=== PATIENT | female | born 1965 | race Caucasian/White ===

== ENCOUNTER 2021-01-03 16:26 | Outpatient (REF) | payer OTHER, SELFPAY ==
[2021-01-03 16:45] LABS: Glucose Urine UA NEG (NEG); Leukocyte Esterase Urine NEG (NEG); Nitrite Urine NEG (NEG); PH 6.5 (5.0-8.0); Specific Gravity - Urine 1.015 (1.005-1.025); Urine Blood 1+ (NEG); Urine Ketones NEG (NEG); Urine Protein NEG (NEG-TRACE)
[2021-01-03 16:47] LABS: Appearance Urine CLEAR; Color Urine YELLOW
[2021-01-03 17:00] LABS: Microalbum/Creatinine Ratio Ur 29.2 ug/mg cr
[2021-01-03 17:33] LABS: Squamous Epithelial Cell Urine 1+ /LPF; WBC Urine 0 /HPF (0-4)
== END 2021-01-03 16:27 | disposition home or self-care (01) ==
LOC: HO.LNP 16:26
PROVIDERS: Visit Provider Internal Medicine
DX: E11.9 Type 2 diabetes mellitus without complications (principal); E78.5 Hyperlipidemia, unspecified; I10 Essential (primary) hypertension; E66.9 Obesity, unspecified
CPT/HCPCS: 81001; 82043

== ENCOUNTER 2021-01-03 16:26 | Outpatient (REF) | payer OTHER, SELFPAY | END 2021-01-03 16:27 | disposition home or self-care (01) | LOC: HO.LNP 16:26 | PROVIDERS: Visit Provider Internal Medicine | DX: Z13.89 Encounter for screening for other disorder (principal) ==

== ENCOUNTER 2021-07-06 08:32 | Outpatient (REF) | payer OTHER, SELFPAY ==
[2021-07-06 11:45] LABS: Alanine Aminotransferase 52 U/L (0-31); Alkaline Phosphatase 98 U/L (39-117); Anion Gap 10 (12-20); Aspartate Amino Transferase 21 U/L (5-31); Bilirubin Total 0.3 mg/dL (0.0-1.0); Blood Urea Nitrogen 15 mg/dL (9-16); Calcium 9.7 mg/dL (8.4-10.2); Carbon Dioxide 31 mmol/L (22-29); Chloride 105 mmol/L (96-108); Cholesterol 221 mg/dL; Estimated Glomerular Filt Rate > 60; Glucose Fasting 131 mg/dL (60-99); HDL Cholesterol 38 mg/dL; LDL Cholesterol Calculated 126 mg/dl; Potassium 4.5 mmol/L (3.3-5.1); Sodium 141 mmol/L (135-145); Total Protein 6.6 g/dL (6.5-8.0); Triglycerides 285 mg/dL
[2021-07-06 11:55] LABS: SARS COV2 IgG Negative (Negative)
[2021-07-06 12:05] LABS: Estimated Average Glucose 143 mg/dL; Hemoglobin A1c % 6.6 %
== END 2021-07-06 08:33 | disposition home or self-care (01) ==
LOC: HO.HMGCLDS 08:32
PROVIDERS: PCP Internal Medicine; Visit Provider Internal Medicine
DX: Z00.00 Encounter for general adult medical examination without abnormal findings (principal); Z20.822 Contact with and (suspected) exposure to COVID-19; E11.9 Type 2 diabetes mellitus without complications; E66.9 Obesity, unspecified; E78.5 Hyperlipidemia, unspecified; I10 Essential (primary) hypertension
CPT/HCPCS: 36415; 80053; 80061; 83036; 86769

== ENCOUNTER 2023-02-17 10:45 | Outpatient (REF) | payer OTHER, SELFPAY ==
[2023-02-17 11:45] LABS: MANUAL DIFF FLAG NO
[2023-02-17 11:54] LABS: Basophils Absolute Auto 0.1 X10*3/uL (0.0-0.2); Basophils Percent Auto 0.7 % (0-2); Eosinophils Absolute Auto 0.3 X10*3/uL (0.0-0.4); Eosinophils Percent Auto 2.3 % (0-4); Hematocrit 45.6 % (37.0-47.0); Hemoglobin 14.2 g/dl (12.0-16.0); Imm Gran Abs Auto 0.05 X10*3/uL (0.00-0.03); Imm Gran Pct Auto 0.4 % (0.0-0.4); Lymphocytes Absolute Auto 3.4 X10*3/uL (1.2-4.9); Lymphocytes Percent Auto 28.4 % (20-40); Mean Corpuscular HGB Conc 31.1 g/dl (31.0-35.0); Mean Corpuscular Hemoglobin 25.2 pg (27.0-33.0); Mean Platelet Volume 9.6 fL (9.4-12.3); Monocytes Absolute Auto 0.7 X10*3/uL (0.1-1.2); Monocytes Percent Auto 5.8 % (2-11); Neutrophils Absolute Auto 7.5 x10*3/uL (2.0-8.3); Neutrophils Percent Auto 62.4 % (45-73); Platelet Count 364 X10*3/uL (160-400); Red Blood Count 5.63 X10*6/uL (4.20-5.50); Red Cell Distribution Width 16.9 % (11.0-16.0)
[2023-02-17 12:02] LABS: Estimated Average Glucose 157 mg/dL; Hemoglobin A1c % 7.1 %
[2023-02-17 12:33] LABS: Alanine Aminotransferase 78 U/L (0-31); Albumin Level 4.1 g/dL (3.5-5.0); Alkaline Phosphatase 95 U/L (39-117); Anion Gap 13 (12-20); Aspartate Amino Transferase 37 U/L (5-31); Bilirubin Total 0.4 mg/dL (0.0-1.0); Blood Urea Nitrogen 17 mg/dL (9-16); Calcium 9.3 mg/dL (8.4-10.2); Carbon Dioxide 28 mmol/L (22-29); Chloride 108 mmol/L (96-108); Cholesterol 202 mg/dL; Estimated Glomerular Filt Rate > 60; Glucose Fasting 127 mg/dL (60-99); HDL Cholesterol 37 mg/dL; LDL Cholesterol Calculated 133 mg/dl; Potassium 4.2 mmol/L (3.3-5.1); Sodium 145 mmol/L (135-145); Total Protein 6.8 g/dL (6.5-8.0); Triglycerides 163 mg/dL
[2023-02-17 12:48] LABS: TSH reflex Free T4 0.87 uIU/mL (0.32-4.0)
== END 2023-02-17 10:46 | disposition home or self-care (01) ==
LOC: HO.HMGCLDS 10:45
PROVIDERS: PCP Internal Medicine; Visit Provider Internal Medicine
DX: E11.9 Type 2 diabetes mellitus without complications (principal); E78.5 Hyperlipidemia, unspecified; I10 Essential (primary) hypertension
CPT/HCPCS: 36415; 80053; 80061; 83036; 84443; 85025

== ENCOUNTER 2023-06-15 09:33 | Outpatient (AMB) | payer OTHER, SELFPAY ==
--- NOTE | 2023-06-15 09:35 | A.OFFPC_ITS ---
Intake Visit Reasons: medication Follow Up ( [phone]) Intake Note: Telehealth visit . Allergies adhesive tape Allergy (Unknown, Verified 06/15/23 09:36) turns skin purple amoxicillin [Amoxicillin] Allergy (Unknown, Verified 06/15/23 09:36) VOMITING BLOOD, unknown ibuprofen [From Motrin] Allergy (Unknown, Verified 06/15/23 09:36) vomiting blood, gi bleed NSAIDS (Non-Steroidal Anti-Inflamma [NSAIDS (NON-STEROIDAL ANTI-INFLAMMA] Allergy (Unknown, Verified 06/15/23 09:36) UPSET STOMACH atorvastatin [From Lipitor] Adverse Reaction (Intermediate, Verified 06/15/23 11:03) MYALGIA rosuvastatin [From Crestor] Adverse Reaction (Intermediate, Verified 06/15/23 11:02) MYALGIA Medication List - Last Reconciled 06/15/23 by Chelsy Patel MD blood sugar diagnostic (FreeStyle Lite Strips) use 1 test strip to test blood sugar three times a day carvedilol 6.25 mg PO BID cetirizine 10 mg PO DAILY PRN cyclobenzaprine 10 mg PO BEDTIME PRN ezetimibe 10 mg PO DAILY fluticasone propionate 110 mcg/actuation (Flovent HFA) 2 puffs inhalation BID fluticasone propionate 50 mcg/actuation 3 sprays intranasal BEDTIME furosemide 20 mg PO Q OTHER DAY glipizide 5 mg PO QAM lancets (FreeStyle Lancets) use 1 lancet 3 times a day to test blood sugar losartan 100 mg PO DAILY 90 days naproxen 500 mg PO BID omeprazole 40 mg PO DAILY sitagliptin phos-metformin 100-1,000 mg ER 1 tab PO DAILY tramadol 100 mg PO QID PRN Ventolin HFA 90 mcg/actuation (albuterol sulfate) 2 puffs inhalation Q8H PRN NS Tobacco use date assessed: 06/15/23 Dental Screening Dental Screen Date: 06/15/23 Did you have a dental visit in the last 12 months?: Yes Did you have a dental problem in the last 6 months where you did not have access to dental care?: No Was dental information given to patient?: Patient has dentist HPI medication Follow Up ) HPI Details This is a tele health visit. Patient's for follow-up of type 2 diabetes hypertension and hyperlipidemia. She reports fasting blood glucose between 140-160 but has not had blood work since February. Patient follows up with director payer annually for hypertension. Asthma is controlled on current medications, [facility] Medical History (Updated 06/15/23 @ 11:06 by Chelsy Patel MD) Asthma Diabetes mellitus Dyslipidemia Essential hypertension Morbid obesity KWESI (obstructive sleep apnea) Osteoarthritis of knees, bilateral Surgical History Deviated septum History of arthroscopy of shoulder History of colonoscopy History of endoscopy History of rotator cuff surgery History of sinus surgery History of tubal ligation Family History Father Diabetes mellitus HTN (hypertension) Mother HTN (hypertension) COPD (chronic obstructive pulmonary disease) Rheumatoid arthritis Brother Spondylitis Paternal Aunt Breast cancer Brother No problems noted. Sister No problems noted. Son No problems noted. Daughter No problems noted. Social History Housing: Apartment Patient Tobacco Use Status: Former Tobacco user Quit Date: 09/07/2016 e-Cigarette/Vaping Use: Former Use Current occupational status: unemployed Cognitive needs: No Hearing needs: No Vision needs: Yes Questionnaire Thrive Questionnaire Date Thrive assessed: 11/15/22 ANA-7 AMB Questionnaire ANA-7 Date ANA - 7 assessed: 11/15/22 Source: Developed by Drs. Poli Mitchell, Jenna Astorga, Jun Dong and colleagues, with an educational delmer from [email or web address]. Review of Systems Const All systems reviewed & are unremarkable except as noted in HPI and below Reports no additional complaints Eyes Reports no additional complaints ENT Reports no additional complaints Card Reports no additional complaints Resp Reports no additional complaints GI Reports no additional complaints Reports no additional complaints Physical exam (Primary Care) Tobacco/Smoking Status: Tobacco use Status Tobacco use date assessed 06/15/23 06/15/23 09:37 Patient Tobacco Use Status Former Tobacco user 06/15/23 09:37 e-Cigarette/Vaping Use Former Use 06/15/23 09:37 Thrive Assessment: Date of Thrive Assessment Date Thrive assessed 11/15/22 06/15/23 09:37 Telehealth Telehealth Location of provider rendering services: practice address Location of patient: address on file Patient Identification confirmed using: Name, : Yes Telehealth method: voice only Patient verbally consented to treatment: Yes Patient verbally consented to billing insurance company: Yes Patient informed of any privacy concerns related to visit: Yes Minutes spent on Phone/Video with Pt.: 30 Assessment and Plan Assessment & Plan (1) Diabetes mellitus: Code(s): E11.9 - Type 2 diabetes mellitus without complications Plan: ADA diet increase exercise discussed with the patient she will return for fasting blood work including A1c. Adding SGLT2 inhibitor for diabetes and heart failure benefit discussed with the patient but she prefers to obtain blood work before. Patient was advised to have a physical scheduled in 4 months with a fas ting labs before (2) Essential hypertension: Code(s): I10 - Essential (primary) hypertension Plan: Continue current medications follow-up with Cardiology at [facility] (3) Morbid obesity: Code(s): E66.01 - Morbid (severe) obesity due to excess calories Plan: Weight loss discussed with the patient (4) Hyperlipidemia: Code(s): E78.5 - Hyperlipidemia, unspecified Plan: Continue Zetia (5) Osteoarthritis of knees, bilateral: Comment: f/u rheumatology Code(s): M17.0 - Bilateral primary osteoarthritis of knee (6) Asthma: Code(s): J45.909 - Unspecified asthma, uncomplicated Plan: Continue Flovent and albuterol as needed. Patient will schedule physical in 4 months with a fasting labs before (7) Heart failure with preserved ejection fraction: Comment: f/u [facility] cardiology annually, last Echo 08/23 EF 55-65%, MILD LV DIASTOLIC DYSFUNCTION, last OV 08/26 Code(s): I50.30 - Unspecified diastolic (congestive) heart failure (8) KWESI (obstructive sleep apnea): Comment: on iVAPs Code(s): G47.33 - Obstructive sleep apnea (adult) (pediatric) Orders: Orders Comprehensive [place]. Panel Fast Today E11.9 - Type 2 diabetes mellitus without complications, E66.01 - Morbid (severe) obesity due to excess calories, E78.5 - Hyperlipidemia, unspecified, I10 - Essential (primary) hypertension Hemoglobin A1c Today E11.9 - Type 2 diabetes mellitus without complications, E66.01 - Morbid (severe) obesity due to excess calories, E78.5 - Hyperlipidemia, unspecified, I10 - Essential (primary) hypertension Lipid Panel Today E11.9 - Type 2 diabetes mellitus without complications, E66.01 - Morbid (severe) obesity due to excess calories, E78.5 - Hyperlipidemia, unspecified, I10 - Essential (primary) hypertension Microalbumin, Random (w Creat) Today E11.9 - Type 2 diabetes mellitus without complications, E66.01 - Morbid (severe) obesity due to excess calories, E78.5 - Hyperlipidemia, unspecified, I10 - Essential (primary) hypertension TSH reflex Free T4 Today E11.9 - Type 2 diabetes mellitus without complications, E66.01 - Morbid (severe) obesity due to excess calories, E78.5 - Hyperlipidemia, unspecified, I10 - Essential (primary) hypertension Hemoglobin A1c 4 Months E11.9 - Type 2 diabetes mellitus without complications, I10 - Essential (primary) hypertension, Z00.00 - Encounter for general adult medical examination without abnormal findings Comprehensive [place]. Panel Fast 4 Months E11.9 - Type 2 diabetes mellitus without complications, I10 - Essential (primary) hypertension, Z00.00 - Encounter for general adult medical examination without abnormal findings Lipid Panel 4 Months E11.9 - Type 2 diabetes mellitus without complications, I10 - Essential (primary) hypertension, Z00.00 - Encounter for general adult medical examination without abnormal findings Medications: New fluconazole (Diflucan) 150 mg PO Q3D 2 tabs 0RF Refilled sitagliptin phos-metformin 100-1,000 mg ER 1 tab PO DAILY 90 tabs 3RF glipizide 5 mg PO QAM 90 caps 3RF E11.9 - Type 2 diabetes mellitus without complications Coding Level of Care Code Tele Est Pt Level 4 (13507) Diagnoses Diabetes mellitus E11.9 Essential hypertension I10 Morbid obesity E66.01 Hyperlipidemia E78.5 Osteoarthritis of knees, bilateral M17.0 Asthma J45.909 Heart failure with preserved ejection fraction I50.30 KWESI (obstructive sleep apnea) G47.33
== END 2023-06-15 10:12 | disposition home or self-care (01) ==
LOC: HO.HMGC 09:33
PROVIDERS: PCP Internal Medicine; Visit Provider Internal Medicine
DX: E11.9 Type 2 diabetes mellitus without complications (principal); I10 Essential (primary) hypertension; E66.01 Morbid (severe) obesity due to excess calories; J45.909 Unspecified asthma, uncomplicated; I50.30 Unspecified diastolic (congestive) heart failure; E78.5 Hyperlipidemia, unspecified; M17.0 Bilateral primary osteoarthritis of knee; G47.33 Obstructive sleep apnea (adult) (pediatric)
CPT/HCPCS: 99214

== ENCOUNTER 2023-10-19 11:49 | Outpatient (AMB) | payer OTHER, SELFPAY ==
--- NOTE | 2023-10-19 12:01 | MHC.PC.OV ---
Vital Signs 10/19/23 12:25 Height 5 ft 4 in BP 125/78 Blood Pressure Location Lt brachial Position Sitting Pulse 87 Pulse Source Pulse Oximeter Pulse Oximetry (%) 97 Oxygen Delivery Method Room Air Intake Visit Reasons: Annual PE+NEEDS COMPLETE PHQ9 +THRIVE Intake Note: pt is here today for annual PE Allergies adhesive tape Allergy (Unknown, Verified 10/19/23 12:24) turns skin purple amoxicillin [Amoxicillin] Allergy (Unknown, Verified 10/19/23 12:24) VOMITING BLOOD, unknown ibuprofen [From Motrin] Allergy (Unknown, Verified 10/19/23 12:24) vomiting blood, gi bleed NSAIDS (Non-Steroidal Anti-Inflamma [NSAIDS (NON-STEROIDAL ANTI-INFLAMMA] Allergy (Unknown, Verified 10/19/23 12:24) UPSET STOMACH atorvastatin [From Lipitor] Adverse Reaction (Intermediate, Verified 10/19/23 12:24) MYALGIA rosuvastatin [From Crestor] Adverse Reaction (Intermediate, Verified 10/19/23 12:24) MYALGIA Medication List - Last Reconciled 10/19/23 by Chelsy Patel MD blood sugar diagnostic (FreeStyle Lite Strips) use 1 test strip to test blood sugar three times a day carvedilol 6.25 mg PO BID cetirizine 10 mg PO DAILY PRN cyclobenzaprine 10 mg PO BEDTIME PRN ezetimibe 10 mg PO DAILY fluconazole (Diflucan) 150 mg PO Q3D 2 doses fluticasone propionate 110 mcg/actuation (Flovent HFA) 2 puffs inhalation BID fluticasone propionate 50 mcg/actuation 3 sprays intranasal BEDTIME furosemide 20 mg PO Q OTHER DAY glipizide 5 mg PO QAM lancets (FreeStyle Lancets) use 1 lancet 3 times a day to test blood sugar losartan 100 mg PO DAILY 90 days naproxen 500 mg PO BID omeprazole 40 mg PO DAILY sitagliptin phos-metformin 100-1,000 mg ER 1 tab PO DAILY Ventolin HFA 90 mcg/actuation (albuterol sulfate) 2 puffs inhalation Q8H PRN NS Tobacco use date assessed: 10/19/23 Dental Screening Dental Screen Date: 10/19/23 Did you have a dental visit in the last 12 months?: Yes Did you have a dental problem in the last 6 months where you did not have access to dental care?: No Was dental information given to patient?: Patient has dentist HPI Annual PE+NEEDS COMPLETE PHQ9 +THRIVE HPI Details PATIENT PRESENTS FOR PHYSICAL. [facility] Medical History Morbid obesity Osteoarthritis of knees, bilateral Asthma KWESI (obstructive sleep apnea) Essential hypertension Dyslipidemia Diabetes mellitus Surgical History History of endoscopy History of colonoscopy Deviated septum History of sinus surgery History of arthroscopy of shoulder History of rotator cuff surgery History of tubal ligation Family History Father Diabetes mellitus HTN (hypertension) Mother HTN (hypertension) COPD (chronic obstructive pulmonary disease) Rheumatoid arthritis Brother Spondylitis Paternal Aunt Breast cancer Brother No problems noted. Sister No problems noted. Son No problems noted. Daughter No problems noted. Social History Housing: Apartment Patient Tobacco Use Status: Former Tobacco user Quit Date: 09/07/2016 e-Cigarette/Vaping Use: Former Use Current occupational status: unemployed Cognitive needs: No Hearing needs: No Vision needs: Yes Questionnaire PHQ-9 Over the last 2 weeks, how often have you been bothered by any of the following problems? 1. Little interest or pleasure in doing things: more than half the days 2. Feeling down, depressed, or hopeless: more than half the days 3. Trouble falling or staying asleep, or sleeping too much: nearly every day 4. Feeling tired or having little energy: more than half the days 5. Poor appetite or overeating: not at all 6. Feeling bad about yourself - or that you are a failure or have let yourself or your family down: nearly every day 7. Trouble concentrating on things, such as reading the newspaper or watching television: more than half the days 8. Moving or speaking so slowly that other people could have noticed. Or the opposite - being so fidgety or restless that you have been moving around a lot more than usual: several days 9. Thoughts that you would be better off or of hurting yourself in some way: not at all Total score: 15 Depression Screening Interpretation: Positive Depression Screening Done: Yes [id number] - PHQ-9 Billing: Yes Source: Developed by Drs. Poli Mitchell, Jenna Astorga, Jun Dong and colleagues, with an educational delmer from [employer]. Thrive Questionnaire Date Thrive assessed: 10/19/23 What is your living situation today?: I have a steady place to live Within the past 12 months, did the food you bought not last and you didn't have the money to get more?: Often true Within the past 12 months, did you worry whether your food would run out before you got money to buy more?: Often true Do you have trouble paying for medicines?: No Do you have trouble getting transportation to medical appointments?: Yes Do you have trouble paying your heating and electricity bill?: Yes Do you have trouble taking care of your child, family member or friend?: Yes Do you have trouble with day-to-day activities such as bathing, preparing meals, shopping, managing finances, etc.?: Yes Are you currently unemployed and looking for a job?: No Are you interested in more education?: No Please select the resources that you would like help with: Paying for medicine, Transportation, Utilities, Childcare and Daily support AUDIT C Alcohol Use Questionnaire (AUDIT-C) 2. How many drinks containing alcohol do you have on a typical day when you are drinking?: 1 or 2 Total Score: 0 ANA-7 AMB Questionnaire ANA-7 Date ANA - 7 assessed: 10/19/23 Feeling nervous, anxious, or on edge: 0 = Not at all Not being able to stop or control worryin = Not at all Worrying too much about different things: 0 = Not at all Trouble relaxin = Not at all Being so restless that it is hard to sit still: 0 = Not at all Becoming easily annoyed or irritable: 0 = Not at all Feeling afraid as if something awful might happen: 0 = Not at all Total ANA-7 score (0-4 normal; 5-9 mild; 10-14 moderate; 15-21 severe): 0 Source: Developed by Jenna Rubin Kurt Kroenke and colleagues, with an educational delmer from [employer]. Review of Systems Const All systems reviewed & are unremarkable except as noted in HPI and below Reports no additional complaints Eyes Reports no additional complaints ENT Reports no additional complaints Card Reports no additional complaints Resp Reports no additional complaints GI Reports no additional complaints Reports no additional complaints Physical exam (Primary Care) Vital Signs: Last Vital Signs Pulse 87 10/19/23 12:25 BP 150/90 H 10/19/23 12:25 Pulse Ox 97 10/19/23 12:25 Oxygen Delivery Method Room Air 10/19/23 12:25 Tobacco/Smoking Status: Tobacco use Status Tobacco use date assessed 10/19/23 10/19/23 12:29 Patient Tobacco Use Status Former Tobacco user 10/19/23 12:01 e-Cigarette/Vaping Use Former Use 10/19/23 12:01 PHQ-9: PHQ-9 Score PHQ-9: Total score 15 10/19/23 12:59 Depression Screening Interpretation: Positive Thrive Assessment: Date of Thrive Assessment Date Thrive assessed 10/19/23 10/19/23 12:59 Const General: no acute distress HENMT Head: Yes normal to inspection Face and sinus: Yes normal facial exam Throat: Yes posterior oropharynx normal Eyes General: appearance normal, both eyes and all related structures Neck Neck: Yes supple Resp Effort & Inspection: normal respiratory effort Auscultation: clear to auscultation bilaterally Cardio Rhythm: regular rhythm Heart sounds: S1 normal heart sound present and S2 normal heart sound present GI Inspection: Yes normal to inspection Palpation (GI): Soft to palpation Percussion: Yes normal to percussion Auscultation: normal bowel sounds Extrem Other: DIABETIC FOOT EXAM SKIN IS INTACT MONOFILAMENT AND VIBRATION SENSATION INTACT General: Yes no clubbing, cyanosis or edema Assessment and Plan Assessment & Plan (1) Hyperlipidemia: Code(s): E78.5 - Hyperlipidemia, unspecified Plan: Continue statin (2) Annual physical exam: Code(s): Z00.00 - Encounter for general adult medical examination without abnormal findings Plan: Well-balanced diet regular exercise weight loss discussed with the patient. She will schedule an appointment for mammogram at [facility] and [facility] (3) Morbid obesity: Code(s): E66.01 - Morbid (severe) obesity due to excess calories Plan: Weight loss discussed with the patient, she declined taking GLP 1 receptor agonist (4) Diabetes mellitus: Code(s): E11.9 - Type 2 diabetes mellitus without complications Plan: Patient will return for fasting blood work next week . ADA diet increase exercise weight loss discussed with the patient. (5) Dyslipidemia: Comment: Intolerant to Crestor and Lipitor, on Zetia for hyperlipidemia Code(s): E78.5 - Hyperlipidemia, unspecified Plan: Continue Zetia , check lipid profile (6) Heart failure with preserved ejection fraction: Comment: f/u [facility] cardiology annually, last Echo 08/23 EF 55-65%, MILD LV DIASTOLIC DYSFUNCTION, last OV 08/26 Code(s): I50.30 - Unspecified diastolic (congestive) heart failure Plan: Continue current medications follow-up with Cardiology annually Orders: Orders Comprehensive [place]. Panel Fast Today E11.9 - Type 2 diabetes mellitus without complications, E66.01 - Morbid (severe) obesity due to excess calories, E78.5 - Hyperlipidemia, unspecified, Z00.00 - Encounter for general adult medical examination without abnormal findings MM screening mammo BI Today E11.9 - Type 2 diabetes mellitus without complications, E66.01 - Morbid (severe) obesity due to excess calories, E78.5 - Hyperlipidemia, unspecified, Z00.00 - Encounter for general adult medical examination without abnormal findings, Z12.31 - Encounter for screening mammogram for malignant neoplasm of breast Complete Blood Count Auto Diff Today E11.9 - Type 2 diabetes mellitus without complications, E66.01 - Morbid (severe) obesity due to excess calories, E78.5 - Hyperlipidemia, unspecified, Z00.00 - Encounter for general adult medical examination without abnormal findings Lipid Panel Today E11.9 - Type 2 diabetes mellitus without complications, E66.01 - Morbid (severe) obesity due to excess calories, E78.5 - Hyperlipidemia, unspecified, Z00.00 - Encounter for general adult medical examination without abnormal findings Hemoglobin A1c Today E11.9 - Type 2 diabetes mellitus without complications, E66.01 - Morbid (severe) obesity due to excess calories, E78.5 - Hyperlipidemia, unspecified, Z00.00 - Encounter for general adult medical examination without abnormal findings Microalbumin, Random (w Creat) Today E11.9 - Type 2 diabetes mellitus without complications, E66.01 - Morbid (severe) obesity due to excess calories, E78.5 - Hyperlipidemia, unspecified, Z00.00 - Encounter for general adult medical examination without abnormal findings TSH reflex Free T4 Today E11.9 - Type 2 diabetes mellitus without complications, E66.01 - Morbid (severe) obesity due to excess calories, E78.5 - Hyperlipidemia, unspecified, Z00.00 - Encounter for general adult medical examination without abnormal findings Coding Level of Care Code Est Pt Prev Care 40-64y(60223) Diagnoses Hyperlipidemia E78.5 Annual physical exam Z00.00 Morbid obesity E66.01 Diabetes mellitus E11.9 Dyslipidemia E78.5 Heart failure with preserved ejection fraction I50.30
[2023-10-19 12:25] VITALS: BP 125/78; PULSE 87; O2SAT 97
== END 2023-10-19 13:15 | disposition home or self-care (01) ==
PROVIDERS: PCP Internal Medicine; Visit Provider Internal Medicine
DX: Z00.00 Encounter for general adult medical examination without abnormal findings (principal); E11.69 Type 2 diabetes mellitus with other specified complication; E66.01 Morbid (severe) obesity due to excess calories; I50.30 Unspecified diastolic (congestive) heart failure; E78.5 Hyperlipidemia, unspecified
CPT/HCPCS: 99396

== ENCOUNTER 2024-08-22 13:56 | Outpatient (AMB) | payer OTHER, SELFPAY ==
--- NOTE | 2024-08-22 13:57 | A.OFFPC_ITS ---
Vital Signs 08/22/24 13:58 Height 5 ft 4 in BMI Reason not done Patient refused/unable BP 136/80 Blood Pressure Location Rt brachial Position Sitting Pulse 92 Pulse Source Pulse Oximeter Pulse Oximetry (%) 96 Intake Visit Reasons: DM followup Intake Note: pt is here for dm follow up Interactive Media Marketing Specialist Required: No Accompanied by: Self / Same As Patient Allergies adhesive tape Allergy (Unknown, Verified 08/22/24 13:58) turns skin purple amoxicillin [Amoxicillin] Allergy (Unknown, Verified 08/22/24 13:58) VOMITING BLOOD, unknown ibuprofen [From Motrin] Allergy (Unknown, Verified 08/22/24 13:58) vomiting blood, gi bleed NSAIDS (Non-Steroidal Anti-Inflamma [NSAIDS (NON-STEROIDAL ANTI-INFLAMMA] Allergy (Unknown, Verified 08/22/24 13:58) UPSET STOMACH atorvastatin [From Lipitor] Adverse Reaction (Intermediate, Verified 08/22/24 13:58) MYALGIA rosuvastatin [From Crestor] Adverse Reaction (Intermediate, Verified 08/22/24 13:58) MYALGIA Medication List - Last Reconciled 08/22/24 by Chelsy Patel MD blood sugar diagnostic (FreeStyle Lite Strips) use 1 test strip to test blood sugar three times a day carvedilol 6.25 mg PO BID cetirizine 10 mg PO DAILY PRN cyclobenzaprine 10 mg PO BEDTIME PRN ezetimibe 10 mg PO DAILY fluticasone propionate 50 mcg/actuation 3 sprays intranasal BEDTIME fluticasone propionate 110 mcg/actuation (Flovent HFA) 2 puffs inhalation BID furosemide 20 mg PO Q OTHER DAY glipizide 5 mg PO QAM lancets (FreeStyle Lancets) use 1 lancet 3 times a day to test blood sugar losartan 100 mg PO DAILY 90 days naproxen 500 mg PO BID omeprazole 40 mg PO DAILY sitagliptin phos-metformin 100-1,000 mg ER 1 tab PO DAILY Ventolin HFA 90 mcg/actuation (albuterol sulfate) 2 puffs inhalation Q8H PRN NS Tobacco use date assessed: 08/22/24 Dental Screening Dental Screen Date: 08/22/24 Did you have a dental visit in the last 12 months?: Yes Did you have a dental problem in the last 6 months where you did not have access to dental care?: No Was dental information given to patient?: Patient has dentist HPI DM followup HPI Details Patient presents for the follow-up of type 2 diabetes hyperlipidemia heart failure with preserved ejection fraction. Patient has not been seen for year and a half in my office. She states has difficulty with transportation. She follows up with a finger buffs assembler annually in her last visit was in May. Her A1c was 8.2. Patient complains of chronic bilateral knee pain stiffness and difficulty walking or exercising because of advanced osteoarthritis. [facility] Medical History Morbid obesity Osteoarthritis of knees, bilateral Asthma KWESI (obstructive sleep apnea) Essential hypertension Dyslipidemia Diabetes mellitus Surgical History History of endoscopy History of colonoscopy Deviated septum History of sinus surgery History of arthroscopy of shoulder History of rotator cuff surgery History of tubal ligation Family History Father Diabetes mellitus HTN (hypertension) Mother HTN (hypertension) COPD (chronic obstructive pulmonary disease) Rheumatoid arthritis Brother Spondylitis Paternal Aunt Breast cancer Brother No problems noted. Sister No problems noted. Son No problems noted. Daughter No problems noted. Social History Housing: Apartment Patient Tobacco Use Status: Former Tobacco user e-Cigarette/Vaping Use: Former Use Current occupational status: unemployed Cognitive needs: No Hearing needs: No Vision needs: Yes Questionnaire PHQ-9 Over the last 2 weeks, how often have you been bothered by any of the following problems? 41949 - PHQ-9 Billing: Patient declined-do not bill Source: Developed by Drs. Poli Mitchell, Jenna Astorga, Jun Dong and colleagues, with an educational delmer from [employer]. Thrive Questionnaire Date Thrive assessed: 10/19/23 AUDIT C Alcohol Use Questionnaire (AUDIT-C) 1. How often do you have a drink containing alcohol?: Monthly or less 2. How many drinks containing alcohol do you have on a typical day when you are drinking?: 1 or 2 3. How often do you have six or more drinks on one occasion?: Never Total Score: 1 Score Reviewed/Action Taken: Yes ANA-7 AMB Questionnaire ANA-7 Date ANA - 7 assessed: 08/22/24 Source: Developed by DrsVince Mitchell, Jenna Astorga, Jun Dong and colleagues, with an educational delmer from [employer]. ANA-7 Assessment Billing ANA-7 Assessment Tool: pt declined-do not bill Review of Systems Const All systems reviewed & are unremarkable except as noted in HPI and below Eyes Reports no additional complaints ENT Reports no additional complaints Card Reports no additional complaints Resp Reports no additional complaints GI Reports no additional complaints Reports no additional complaints Physical exam (Primary Care) Vital Signs: Last Vital Signs Pulse 92 08/22/24 13:58 BP 136/80 08/22/24 13:58 Pulse Ox 96 08/22/24 13:58 Tobacco/Smoking Status: Tobacco use Status Tobacco use date assessed 08/22/24 08/22/24 14:04 Patient Tobacco Use Status Former Tobacco user 08/22/24 14:04 e-Cigarette/Vaping Use Former Use 08/22/24 14:04 Thrive Assessment: Date of Thrive Assessment Date Thrive assessed 10/19/23 08/22/24 14:04 HENMT Head: Yes normal to inspection Throat: Yes posterior oropharynx normal Resp Effort & Inspection: normal respiratory effort Auscultation: clear to auscultation bilaterally Cardio Rhythm: regular rhythm Heart sounds: S1 normal heart sound present and S2 normal heart sound present GI Inspection: Yes normal to inspection Palpation (GI): Soft to palpation Percussion: Yes normal to percussion Auscultation: normal bowel sounds Extrem Other: Diabetic foot exam skin is intact monofilament sensation intact bilaterally General: Yes no clubbing, cyanosis or edema Results AMB Hemoglobin A1c AMB Hemoglobin A1c 7.6 % Last Edit by Herberth Leon CMA on 08/22/24 14: 33 Coding Level of Care Code Est Pt Level 5 (19783) Complex EM visit Add On G2211 Diagnoses Diabetes mellitus E11.9 Morbid obesity E66.01 Hyperlipidemia E78.5 Heart failure with preserved ejection fraction I50.30 Assessment & Plan Assessment & Plan (1) Diabetes mellitus: Code(s): E11.9 - Type 2 diabetes mellitus without complications Category: Medical Plan: A1c is 7.6 today, ADA diet increase physical activity weight loss discussed with the patient. Glipizide will be discontinued Farxiga 5 mg will be started. Patient will continue Janumet and Ozempic 0.25 mg weekly will be started. Side effects discussed with the patient. Patient is concerned about a side effect of stomach dysmotility related to Ozempic and ongoing lawsuit. (2) Morbid obesity: Code(s): E66.01 - Morbid (severe) obesity due to excess calories Category: Medical Plan: Decrease caloric intake increase physical activity weight loss discussed with the patient. (3) Hyperlipidemia: Comment: Intolerant to Crestor and Lipitor Code(s): E78.5 - Hyperlipidemia, unspecified Category: Medical Plan: Continue Zetia low-cholesterol diet discussed with the patient. (4) Heart failure with preserved ejection fraction: Comment: f/u [facility] cardiology annually, last Echo 08/23 EF 55-65%, MILD LV DIASTOLIC DYSFUNCTION, last OV 08/26 Code(s): I50.30 - Unspecified diastolic (congestive) heart failure Category: Medical Plan: Farxiga will be added carvedilol will be increased to 25 mg twice a day for better heart rate control. Continue furosemide and losartan follow-up in 1 month Orders: Orders Comprehensive [place]. Panel Fast 3 Months E11.9 - Type 2 diabetes mellitus without complications, E66.01 - Morbid (severe) obesity due to excess calories, E78.5 - Hyperlipidemia, unspecified, I50.30 - Unspecified diastolic (congestive) heart failure Hemoglobin A1c 3 Months E11.9 - Type 2 diabetes mellitus without complications, E66.01 - Morbid (severe) obesity due to excess calories, E78.5 - Hyperlipidemia, unspecified, I50.30 - Unspecified diastolic (congestive) heart failure Lipid Panel 3 Months E11.9 - Type 2 diabetes mellitus without complications, E66.01 - Morbid (severe) obesity due to excess calories, E78.5 - Hyperlipidemia, unspecified, I50.30 - Unspecified diastolic (congestive) heart failure Microalbumin, Random (w Creat) 3 Months E11.9 - Type 2 diabetes mellitus without complications, E66.01 - Morbid (severe) obesity due to excess calories, E78.5 - Hyperlipidemia, unspecified, I50.30 - Unspecified diastolic (congestive) heart failure TSH reflex Free T4 3 Months E11.9 - Type 2 diabetes mellitus without c omplications, E66.01 - Morbid (severe) obesity due to excess calories, E78.5 - Hyperlipidemia, unspecified, I50.30 - Unspecified diastolic (congestive) heart failure AMB Hemoglobin A1c Today Z13.9 - Encounter for screening, unspecified Medications: New dapagliflozin propanediol (Farxiga) 5 mg PO DAILY 90 tabs 0RF Ozempic (semaglutide) 0.25 mg (0.368 mL) subcut QWEEK 3 mL 1RF NS carvedilol must administer with a meal/food 25 mg PO BID 180 tabs 1RF Refilled blood sugar diagnostic (FreeStyle Lite Strips) use 1 test strip to test blood sugar three times a day 300 ea 3RF E11.9 - Type 2 diabetes mellitus without complications lancets (FreeStyle Lancets) use 1 lancet 3 times a day to test blood sugar 300 ea 3RF E11.9 - Type 2 diabetes mellitus without complications sitagliptin phos-metformin 100-1,000 mg ER 1 tab PO DAILY 90 tabs 0RF Discontinued glipizide Discontinued Reason: Doctor's Order 5 mg PO QAM 90 caps 0RF E11.9 - Type 2 diabetes mellitus without complications
[2024-08-22 13:58] VITALS: BP 136/80; PULSE 92; O2SAT 96
== END 2024-08-22 15:00 | disposition home or self-care (01) ==
PROVIDERS: PCP Internal Medicine; Visit Provider Internal Medicine
DX: E11.69 Type 2 diabetes mellitus with other specified complication (principal); E66.01 Morbid (severe) obesity due to excess calories; I50.30 Unspecified diastolic (congestive) heart failure; E78.5 Hyperlipidemia, unspecified

== ENCOUNTER → 2024-08-22 13:56 | Outpatient (BNVA) | payer OTHER, SELFPAY | PROVIDERS: PCP Internal Medicine; Visit Provider Internal Medicine | DX: E11.9 Type 2 diabetes mellitus without complications (principal); E66.01 Morbid (severe) obesity due to excess calories; E78.5 Hyperlipidemia, unspecified; I50.30 Unspecified diastolic (congestive) heart failure; Z79.899 Other long term (current) drug therapy | CPT/HCPCS: 83036; 99212 ==

== ENCOUNTER 2024-12-26 14:07 | Outpatient (AMB) | payer OTHER, SELFPAY ==
[2024-12-26 14:09] VITALS: BP 132/80; PULSE 82; TEMP 36.6; O2SAT 97
--- NOTE | 2024-12-26 14:09 | A.OFFPC_ITS ---
Vital Signs 12/26/24 14:09 Height 5 ft 4 in BMI Reason not done Patient refused/unable BP 132/80 Blood Pressure Location Lt brachial Position Sitting Pulse 82 Pulse Source Pulse Oximeter Temp 97.8 F Temp Source Oral Pulse Oximetry (%) 97 Oxygen Delivery Method Room Air Intake Visit Reasons: DM followup Allergies adhesive tape Allergy (Unknown, Verified 12/26/24 14:09) turns skin purple amoxicillin [Amoxicillin] Allergy (Unknown, Verified 12/26/24 14:09) VOMITING BLOOD, unknown ibuprofen [From Motrin] Allergy (Unknown, Verified 12/26/24 14:09) vomiting blood, gi bleed NSAIDS (Non-Steroidal Anti-Inflamma [NSAIDS (NON-STEROIDAL ANTI-INFLAMMA] Allergy (Unknown, Verified 12/26/24 14:09) UPSET STOMACH atorvastatin [From Lipitor] Adverse Reaction (Intermediate, Verified 12/26/24 14:09) MYALGIA dapagliflozin [From Farxiga] Adverse Reaction (Intermediate, Verified 12/26/24 14:41) candidasis rosuvastatin [From Crestor] Adverse Reaction (Intermediate, Verified 12/26/24 14:09) MYALGIA Medication List - Last Reconciled 12/26/24 by Chelsy Patel MD blood sugar diagnostic (FreeStyle Lite Strips) use 1 test strip to test blood sugar three times a day carvedilol 6.25 mg PO BID cetirizine 10 mg PO DAILY PRN cyclobenzaprine 10 mg PO BEDTIME PRN ezetimibe 10 mg PO DAILY fluconazole 100 mg PO DAILY fluticasone propionate 50 mcg/actuation 3 sprays intranasal BEDTIME fluticasone propionate 110 mcg/actuation (Flovent HFA) 2 puffs inhalation BID furosemide 20 mg PO Q OTHER DAY lancets (FreeStyle Lancets) use 1 lancet 3 times a day to test blood sugar losartan 100 mg PO DAILY 90 days omeprazole 40 mg PO DAILY sitagliptin phos-metformin 100-1,000 mg ER 1 tab PO DAILY Ventolin HFA 90 mcg/actuation (albuterol sulfate) 2 puffs inhalation Q8H PRN NS Tobacco use date assessed: 12/26/24 Dental Screening Dental Screen Date: 12/26/24 Did you have a dental visit in the last 12 months?: Yes Did you have a dental problem in the last 6 months where you did not have access to dental care?: No Was dental information given to patient?: Patient has dentist HPI DM followup HPI Details Patient presents for the follow-up on diabetes heart failure with preserved ejection fraction hypertension hyperlipidemia. She has not been monitoring her blood glucose and has not been compliant with ADA diet. Her insurance did not cover Ozempic and patient could not tolerate Farxiga because of candidiasis [facility] Medical History Morbid obesity Osteoarthritis of knees, bilateral Asthma KWESI (obstructive sleep apnea) Essential hypertension Dyslipidemia Diabetes mellitus Surgical History History of endoscopy History of colonoscopy Deviated septum History of sinus surgery History of arthroscopy of shoulder History of rotator cuff surgery History of tubal ligation Family History Father Diabetes mellitus HTN (hypertension) Mother HTN (hypertension) COPD (chronic obstructive pulmonary disease) Rheumatoid arthritis Brother Spondylitis Paternal Aunt Breast cancer Brother No problems noted. Sister No problems noted. Son No problems noted. Daughter No problems noted. Social History Housing: Apartment Patient Tobacco Use Status: Former Tobacco user e-Cigarette/Vaping Use: Former Use Current occupational status: unemployed Cognitive needs: No Hearing needs: No Vision needs: Yes Questionnaire PHQ-9 Over the last 2 weeks, how often have you been bothered by any of the following problems? 95033 - PHQ-9 Billing: Patient declined-do not bill Source: Developed by Drs. Poli Mitchell, Jenna Astorga, Jun Dong and colleagues, with an educational delmer from [employer]. Thrive Questionnaire Date Thrive assessed: 12/26/24 What is your living situation today?: I have a steady place to live Within the past 12 months, did the food you bought not last and you didn't have the money to get more?: Often true Within the past 12 months, did you worry whether your food would run out before you got money to buy more?: Often true Do you have trouble paying for medicines?: No Do you have trouble getting transportation to medical appointments?: Yes Do you have trouble paying your heating and electricity bill?: Yes Do you have trouble taking care of your child, family member or friend?: Yes Do you have trouble with day-to-day activities such as bathing, preparing meals, shopping, managing finances, etc.?: Yes Are you currently unemployed and looking for a job?: No Are you interested in more education?: No Please select the resources that you would like help with: Paying for medicine, Transportation, Utilities, Childcare and Daily support THRIVE Score: 4 AUDIT C Alcohol Use Questionnaire (AUDIT-C) 1. How often do you have a drink containing alcohol?: Monthly or less 2. How many drinks containing alcohol do you have on a typical day when you are drinking?: 1 or 2 3. How often do you have six or more drinks on one occasion?: Never Total Score: 1 Score Reviewed/Action Taken: Yes ANA-7 AMB Questionnaire ANA-7 Date ANA - 7 assessed: 12/26/24 Feeling nervous, anxious, or on edge: 0 = Not at all Not being able to stop or control worryin = Not at all Worrying too much about different things: 0 = Not at all Trouble relaxin = Not at all Being so restless that it is hard to sit still: 0 = Not at all Becoming easily annoyed or irritable: 0 = Not at all Feeling afraid as if something awful might happen: 0 = Not at all Total ANA-7 score (0-4 normal; 5-9 mild; 10-14 moderate; 15-21 severe): 0 Source: Developed by Drs. Poli Mitchell, Jenna Astorga, Jun Dong and colleagues, with an educational delmer from [employer]. ANA-7 Assessment Billing ANA-7 Assessment Tool: ANA-7 Assessment 35063 Review of Systems Const All systems reviewed & are unremarkable except as noted in HPI and below Eyes Reports no additional complaints ENT Reports no additional complaints Card Reports no additional complaints Resp Reports no additional complaints GI Reports no additional complaints Reports no additional complaints Physical exam (Primary Care) Vital Signs: Last Vital Signs Temp 97.8 F 12/26/24 14:09 Pulse 82 12/26/24 14:09 BP 132/80 12/26/24 14:09 Pulse Ox 97 12/26/24 14:09 Oxygen Delivery Method Room Air 12/26/24 14:09 Tobacco/Smoking Status: Tobacco use Status Tobacco use date assessed 12/26/24 12/26/24 14:17 Patient Tobacco Use Status Former Tobacco user 12/26/24 14:12 e-Cigarette/Vaping Use Former Use 12/26/24 14:12 Thrive Assessment: Date of Thrive Assessment Date Thrive assessed 12/26/24 12/26/24 14:17 Const General: no acute distress HENMT Face and sinus: Yes normal facial exam Mouth: Normal oral and palatal mucosa present Neck Neck: Yes supple Resp Effort & Inspection: normal respiratory effort Auscultation: clear to auscultation bilaterally Cardio Rhythm: regular rhythm Heart sounds: S1 normal heart sound present and S2 normal heart sound present GI Inspection: Yes normal to inspection Palpation (GI): Soft to palpation Auscultation: normal bowel sounds Results AMB Hemoglobin A1c AMB Hemoglobin A1c 10.7 % Last Edit by Herberth Leon CMA on 12/26/24 14 :35 Results Reviewed Results Reviewed: Laboratory Last Values Hgb A1c (Clinic) 10.7 % (4.0-6.0) H 12/26/24 14:35 Coding Level of Care Code Est Pt Level 5 (69197) Complex EM visit Add On G2211 Diagnoses Heart failure with preserved ejection fraction I50.30 Morbid obesity E66.01 Diabetes mellitus E11.9 Essential hypertension I10 Dyslipidemia E78.5 Additional Codes ANA-7 Assessment Billing - ANA-7 Assessment Tool: ANA-7 Assessment 10771 ([id number]) Assessment & Plan Assessment & Plan (1) Heart failure with preserved ejection fraction: Comment: f/u [facility] cardiology annually, last Echo 08/23 EF 55-65%, MILD LV DIASTOLIC DYSFUNCTION, Code(s): I50.30 - Unspecified diastolic (congestive) heart failure Category: Medical Plan: Continue current medications (2) Morbid obesity: Code(s): E66.01 - Morbid (severe) obesity due to excess calories Category: Medical Plan: Decreasing caloric intake increasing physical activity discussed with the patient (3) Diabetes mellitus: Code(s): E11.9 - Type 2 diabetes mellitus without complications Category: Medical Plan: A1c is 10.7. ADA diet increase physical activity weight loss discussed with the patient continue Janumet and add Mounjaro 2.5 mg weekly. Follow-up in 3 months with a fasting labs before (4) Essential hypertension: Code(s): I10 - Essential (primary) hypertension Category: Medical Plan: Continue current medications (5) Dyslipidemia: Comment: Intolerant to Crestor and Lipitor, on Zetia for hyperlipidemia Code(s): E78.5 - Hyperlipidemia, unspecified Category: Medical Plan: Continue Zetia Orders: Orders AMB Hemoglobin A1c Today Z13.9 - Encounter for screening, unspecified Comprehensive [place]. Panel Fast 3 Months E11.9 - Type 2 diabetes mellitus without complications, E78.5 - Hyperlipidemia, unspecified, I10 - Essential (primary) hypertension Hemoglobin A1c 3 Months E11.9 - Type 2 diabetes mellitus without complications, E66.01 - Morbid (severe) obesity due to excess calories, E78.5 - Hyperlipidemia, unspecified, I10 - Essential (primary) hypertension, I50.30 - Unspecified diastolic (congestive) heart failure Lipid Panel 3 Months E11.9 - Type 2 diabetes mellitus without complications, E66.01 - Morbid (severe) obesity due to excess calories, E78.5 - Hyperlipidemia, unspecified, I10 - Essential (primary) hypertension, I50.30 - Unspecified diastolic (congestive) heart failure Complete Blood Count Auto Diff 3 Months E11.9 - Type 2 diabetes mellitus without complications, E66.01 - Morbid (severe) obesity due to excess calories, E78.5 - Hyperlipidemia, unspecified, I10 - Essential (primary) hypertension, I50.30 - Unspecified diastolic (congestive) heart failure Microalbumin, Random (w Creat) 3 Months E11.9 - Type 2 diabetes mellitus without complications, E66.01 - Morbid (severe) obesity due to excess calories, E78.5 - Hyperlipidemia, unspecified, I10 - Essential (primary) hypertension, I50.30 - Unspecified diastolic (congestive) heart failure Medications: New furosemide 20 mg PO Q OTHER DAY 45 tabs 3RF fluconazole 100 mg PO DAILY 7 tabs 0RF tirzepatide (Mounjaro) for 4 weeks 2.5 mg (0.5 mL) subcut QWEEK 6 mL 2RF ezetimibe 10 mg PO DAILY 90 tabs 3RF Changed From fluticasone propionate 110 mcg/actuation (Flovent HFA) 2 puffs inhalation BID 36 grams 3RF To fluticasone propionate 110 mcg/actuation 2 puffs inhalation BID 36 grams 3RF Refilled Ventolin HFA 90 mcg/actuation (albuterol sulfate) 2 puffs inhalation Q8H PRN 18 grams 4RF shortness of breath or wheezing NS J45.909 - Unspecified asthma, uncomplicated losartan 100 mg PO DAILY 90 days 90 tabs 0RF I10 - Essential (primary) hypertension sitagliptin phos-metformin 100-1,000 mg ER 1 tab PO DAILY 90 tabs 3RF
== END 2024-12-26 14:53 | disposition home or self-care (01) ==
PROVIDERS: PCP Internal Medicine; Visit Provider Internal Medicine
DX: I50.30 Unspecified diastolic (congestive) heart failure (principal); E66.01 Morbid (severe) obesity due to excess calories; E11.69 Type 2 diabetes mellitus with other specified complication; I10 Essential (primary) hypertension; E78.5 Hyperlipidemia, unspecified

== ENCOUNTER → 2024-12-26 14:07 | Outpatient (BNVA) | payer OTHER, SELFPAY | PROVIDERS: PCP Internal Medicine; Visit Provider Internal Medicine | DX: I11.0 Hypertensive heart disease with heart failure (principal); I50.30 Unspecified diastolic (congestive) heart failure; E78.5 Hyperlipidemia, unspecified; E66.01 Morbid (severe) obesity due to excess calories | CPT/HCPCS: 83036; 96127; 99212 ==

== ENCOUNTER 2025-11-04 11:52 | Outpatient (AMB) | payer OTHER, SELFPAY ==
--- NOTE | 2025-11-04 11:56 | A.OFFPC_ITS ---
Vital Signs 11/04/25 12:02 BMI Reason not done Patient refused/unable BP 144/94 H Blood Pressure Location Lt brachial Position Sitting Respiration 18 Pulse 94 Pulse Source Pulse Oximeter Temp 98.9 F Temp Source Oral Pulse Oximetry (%) 96 Oxygen Delivery Method Room Air Intake Visit Reasons: Follow Up- PHQ-9 and A1C needed. RE Intake Note: Pt is here today for a follow up visit. Allergies adhesive tape Allergy (Unknown, Verified 11/04/25 12:03) turns skin purple amoxicillin (Amoxicillin) Allergy (Unknown, Verified 11/04/25 12:03) VOMITING BLOOD, unknown ibuprofen (From Motrin) Allergy (Unknown, Verified 11/04/25 12:03) vomiting blood, gi bleed NSAIDS (Non-Steroidal Anti-Inflamma (NSAIDS (NON-STEROIDAL ANTI-INFLAMMA) Allergy (Unknown, Verified 11/04/25 12:03) UPSET STOMACH atorvastatin (From Lipitor) Adverse Reaction (Intermediate, Verified 11/04/25 12:03) MYALGIA dapagliflozin (From Farxiga) Adverse Reaction (Intermediate, Verified 11/04/25 12:03) candidasis rosuvastatin (From Crestor) Adverse Reaction (Intermediate, Verified 11/04/25 12:03) MYALGIA Medication List - Last Reconciled 11/04/25 by Chelsy Patel MD blood sugar diagnostic (FreeStyle Lite Strips) use 1 test strip to test blood sugar three times a day carvedilol 6.25 mg PO BID cetirizine 10 mg PO DAILY PRN cyclobenzaprine 10 mg PO BEDTIME PRN dulaglutide (Trulicity) 0.75 mg (0.5 mL) subcut QWEEK fluticasone propionate 110 mcg/actuation 2 puffs inhalation BID hydrochlorothiazide 25 mg PO DAILY lancets (FreeStyle Lancets) use 1 lancet 3 times a day to test blood sugar losartan 100 mg PO DAILY 90 days omeprazole 40 mg PO DAILY sitagliptin phos-metformin 100-1,000 mg ER 1 tab PO DAILY Ventolin HFA 90 mcg/actuation (albuterol sulfate) 2 puffs inhalation Q8H PRN NS Tobacco use date assessed: 11/04/25 Dental Screening Dental Screen Date: 12/26/24 HPI Follow Up- PHQ-9 and A1C needed. RE HPI Details Patient presents for the follow-up of type 2 diabetes hypertension stable on current medications. Patient took Trulicity for 1 month and did not call for the refills. She tolerating medication well and noticed decreased appetite while on medication. She had no side effects from Trulicity. patient has not been monitoring her blood glucose regularly. She is established with Cardiology at [facility] and medications changes were made recently but patient does not have the list of her new medications. [facility] Medical History (Updated 11/04/25 @ 13:04 by Chelsy Patel MD) Annual physical exam Depression with anxiety Morbid obesity Osteoarthritis of knees, bilateral Asthma KWESI (obstructive sleep apnea) Essential hypertension Dyslipidemia Diabetes mellitus Surgical History History of endoscopy History of colonoscopy Deviated septum History of sinus surgery History of arthroscopy of shoulder History of rotator cuff surgery History of tubal ligation Family History Father Diabetes mellitus HTN (hypertension) Mother HTN (hypertension) COPD (chronic obstructive pulmonary disease) Rheumatoid arthritis Brother Spondylitis Paternal Aunt Breast cancer Brother No problems noted. Sister No problems noted. Son No problems noted. Daughter No problems noted. Social History Housing: Apartment Patient Tobacco Use Status: Former Tobacco user e-Cigarette/Vaping Use: Former Use service: No Current occupational status: unemployed Cognitive needs: No Hearing needs: No Vision needs: Yes Questionnaire PHQ-9 Over the last 2 weeks, how often have you been bothered by any of the following problems? 1. Little interest or pleasure in doing things: several days 2. Feeling down, depressed, or hopeless: more than half the days 3. Trouble falling or staying asleep, or sleeping too much: nearly every day 4. Feeling tired or having little energy: more than half the days 5. Poor appetite or overeating: several days 6. Feeling bad about yourself - or that you are a failure or have let yourself or your family down: several days 7. Trouble concentrating on things, such as reading the newspaper or watching television: not at all 8. Moving or speaking so slowly that other people could have noticed. Or the opposite - being so fidgety or restless that you have been moving around a lot more than usual: not at all 9. Thoughts that you would be better off or of hurting yourself in some way: not at all Total score: 10 Depression Screening Interpretation: Positive (Patient is established with a therapist she declined medications) Depression Screening Follow-up: Existing condition and In treatment Depression Screening Done: Yes Source: Developed by Drs. Poli Mitchell, Jenna Astorga, Jun Dong and colleagues, with an educational delmer from [employer]. Thrive Questionnaire Date Thrive assessed: 12/26/24 I am a: Patient What is your living situation today?: I have a steady place to live Within the past 12 months, did the food you bought not last and you didn't have the money to get more?: Sometimes True Within the past 12 months, did you worry whether your food would run out before you got money to buy more?: Often true Do you have trouble paying for medicines?: No Do you have trouble getting transportation to medical appointments?: No Do you have trouble paying your heating and electricity bill?: Yes Do you have trouble taking care of your child, family member or friend?: No Do you have trouble with day-to-day activities such as bathing, preparing meals, shopping, managing finances, etc.?: Yes Are you currently unemployed and looking for a job?: I choose not to answer this question Are you interested in more education?: No Please select the resources that you would like help with: None Currently or been in a relationship where the following occur: I choose not to answer THRIVE Score: 3 ANA-7 AMB Questionnaire ANA-7 Date ANA - 7 assessed: 11/04/25 Source: Developed by Drs. Poli Mitchell, Jenna Astorga, Jun Dong and colleagues, with an educational delmer from [employer]. Review of Systems Const All systems reviewed & are unremarkable except as noted in HPI and below Eyes Reports no additional complaints ENT Reports no additional complaints Card Reports no additional complaints Resp Reports no additional complaints GI Reports no additional complaints Reports no additional complaints Physical exam (Primary Care) Vital Signs: Last Vital Signs Temp 98.9 F 11/04/25 12:02 Pulse 94 11/04/25 12:02 Resp 18 11/04/25 12:02 BP 144/94 H 11/04/25 12:02 Pulse Ox 96 11/04/25 12:02 Oxygen Delivery Method Room Air 11/04/25 12:02 Tobacco/Smoking Status: Tobacco use Status Tobacco use date assessed 11/04/25 11/04/25 12:10 Patient Tobacco Use Status Former Tobacco user 11/04/25 11:57 e-Cigarette/Vaping Use Former Use 11/04/25 11:57 PHQ-9: PHQ-9 Score PHQ-9: Total score 10 11/04/25 12:25 Depression Screening Interpretation: Positive (Patient is established with a therapist she declined medications) Depression Screening Follow-up: Existing condition and In treatment Thrive Assessment: Date of Thrive Assessment Date Thrive assessed 12/26/24 11/04/25 11:57 Currently or been in a relationship where the following occur: I choose not to answer Const General: no acute distress HENMT Head: Yes normal to inspection Face and sinus: Yes normal facial exam Mouth: Normal oral and palatal mucosa present Neck Neck: Yes no lymphadenopathy and Yes supple Resp Effort & Inspection: normal respiratory effort Auscultation: clear to auscultation bilaterally Cardio Rhythm: regular rhythm Heart sounds: S1 normal heart sound present and S2 normal heart sound present GI Inspection: Yes normal to inspection Palpation (GI): Soft to palpation Percussion: Yes normal to percussion Auscultation: normal bowel sounds Extrem Other: Diabetic foot exam skin is intact monofilament and vibration sensation intact bilaterally General: Yes no clubbing, cyanosis or edema Results AMB Hemoglobin A1c 2 AMB Hemoglobin A1c 8.7 % Last Edit by RORO Melvin on 11/04/25 12:2 5 Results Reviewed Results Reviewed: Laboratory Last Values Hgb A1c (Clinic) 8.7 % (4.0-6.0) H 11/04/25 12:17 Coding Level of Care Code Est Pt Level 4 (11880) Diagnoses Diabetes mellitus E11.9 Heart failure with preserved ejection fraction I50.30 Dyslipidemia E78.5 Essential hypertension I10 Depression with anxiety F41.8 Assessment & Plan Assessment & Plan (1) Diabetes mellitus: Code(s): E11.9 - Type 2 diabetes mellitus without complications Category: Medical Plan: ADA diet increase physical activity decreasing caloric intake weight loss discussed with the patient. She will restart Trulicity and continue Janumet. Follow-up in 3 months with a fasting labs before (2) Heart failure with preserved ejection fraction: Comment: f/u [facility] cardiology annually, last Echo 08/23 EF 55-65%, MILD LV DIASTOLIC DYSFUNCTION, Code(s): I50.30 - Unspecified diastolic (congestive) heart failure Category: Medical Plan: Continue current medications follow-up with Cardiology (3) Dyslipidemia: Comment: Intolerant to Crestor and Lipitor, on Zetia for hyperlipidemia Code(s): E78.5 - Hyperlipidemia, unspecified Category: Medical Plan: Patient will return for fasting blood work. (4) Essential hypertension: Code(s): I10 - Essential (primary) hypertension Category: Medical Plan: Blood pressure is elevated today but patient will be starting new blood pressure medications and will follow-up with basic Cardiology next month (5) Depression with anxiety: Comment: Established with a counselor not interested in medications Code(s): F41.8 - Other specified anxiety disorders Category: Medical Plan: Continue counseling stress management discussed with the patient she is not interested in taking medications. Orders: Orders Lipid Panel 3 Months E11.9 - Type 2 diabetes mellitus without complications, E78.5 - Hyperlipidemia, unspecified, I50.30 - Unspecified diastolic (congestive) heart failure TSH reflex Free T4 3 Months E11.9 - Type 2 diabetes mellitus without complications, E78.5 - Hyperlipidemia, unspecified, I50.30 - Unspecified diastolic (congestive) heart failure AMB Hemoglobin A1c Today Z13.9 - Encounter for screening, unspecified Comprehensive Pablo. Panel Fast 3 Months E11.9 - Type 2 diabetes mellitus without complications, E78.5 - Hyperlipidemia, unspecified, I50.30 - Unspecified diastolic (congestive) heart failure Complete Blood Count Auto Diff 3 Months E11.9 - Type 2 diabetes mellitus without complications, E78.5 - Hyperlipidemia, unspecified, I50.30 - Unspecified diastolic (congestive) heart failure Hemoglobin A1c 3 Months E11.9 - Type 2 diabetes mellitus without complications, E78.5 - Hyperlipidemia, unspecified, I50.30 - Unspecified diastolic (congestive) heart failure Microalbumin, Random (w Creat) 3 Months E11.9 - Type 2 diabetes mellitus without complications, E78.5 - Hyperlipidemia, unspecified, I50.30 - Unspecified diastolic (congestive) heart failure Vitamin D 25-OH Total 3 Months E11.9 - Type 2 diabetes mellitus without complications, E78.5 - Hyperlipidemia, unspecified, I50.30 - Unspecified diastolic (congestive) heart failure Medications: Refilled dulaglutide (Trulicity) 0.75 mg (0.5 mL) subcut QWEEK 2 mL 3RF sitagliptin phos-metformin 100-1,000 mg ER 1 tab PO DAILY 90 tabs 3RF
[2025-11-04 12:02] VITALS: BP 144/94; PULSE 94; RESP 18; TEMP 37.2; O2SAT 96
== END 2025-11-04 12:43 | disposition home or self-care (01) ==
LOC: HO.HMCC 11:52
PROVIDERS: PCP Internal Medicine; Visit Provider Internal Medicine
DX: E11.9 Type 2 diabetes mellitus without complications (principal); I50.30 Unspecified diastolic (congestive) heart failure; E78.5 Hyperlipidemia, unspecified; I10 Essential (primary) hypertension; F41.8 Other specified anxiety disorders; Z13.9 Encounter for screening, unspecified

== ENCOUNTER → 2025-11-04 11:52 | Outpatient (BNVA) | payer OTHER, SELFPAY | PROVIDERS: PCP Internal Medicine; Visit Provider Internal Medicine | DX: E11.9 Type 2 diabetes mellitus without complications (principal); I11.0 Hypertensive heart disease with heart failure; I50.30 Unspecified diastolic (congestive) heart failure; F41.8 Other specified anxiety disorders; Z13.31 Encounter for screening for depression; Z79.85 Long-term (current) use of injectable non-insulin antidiabetic drugs; Z87.891 Personal history of nicotine dependence | CPT/HCPCS: 83036; 96127; 99212 ==